=== PATIENT | male | born 1980 | race African-American/Black ===

== ENCOUNTER 2024-02-04 15:57 | Emergency (ER) | payer OTHER ==
[~2024-02-04] VITALS: Ht 185.4 cm; Wt 113.4 kg
[2024-02-04 16:04] VITALS: BP_SYST 160; PULSE 103; RESP 17; TEMP 97.6; O2SAT 97
[2024-02-04] MEDS ORDERED: BACITRACIN 1 GM OINT TP ONE (16:52)
[2024-02-04] MEDS: cefTRIAXone 1 GM VIAL IM ONE (17:03)
[2024-02-04] MEDS ORDERED: DOXY100C5 PO (17:08)
[2024-02-04] MEDS ORDERED: CEFU250T85 PO (17:08)
[2024-02-04 17:12] VITALS: BP_SYST 150; PULSE 68; RESP 20; TEMP 97.8; O2SAT 98
== END 2024-02-04 17:14 | disposition home or self-care (01) ==
LOC: SED 15:57
DX: Z48.00 Encounter for change or removal of nonsurgical wound dressing (principal)
CPT/HCPCS: 99283; 96372; J0696

== ENCOUNTER 2024-03-02 21:35 | Emergency (ER) | payer OTHER ==
[~2024-03-02] VITALS: Ht 185.4 cm; Wt 113.4 kg
[~2024-03-02 21:35] MED LIST: CEFU250T85 PO; DOXY100C5 PO
[2024-03-02 21:59] VITALS: BP_SYST 160; PULSE 79; RESP 18; TEMP 98.2; O2SAT 98
[2024-03-03] MEDS: CLINDAMYCIN 600 mg/50mL D5W 50 ML IV ONE (00:19)
[2024-03-03] MEDS ORDERED: CLIN-142 PO (02:21)
[2024-03-03 02:27] VITALS: BP_SYST 142; PULSE 76; RESP 16; TEMP 98; O2SAT 97
== END 2024-03-03 02:27 | disposition home or self-care (01) ==
LOC: SED 21:35
DX: L03.114 Cellulitis of left upper limb (principal); R22.32 Localized swelling, mass and lump, left upper limb; Z79.899 Other long term (current) drug therapy; Z79.2 Long term (current) use of antibiotics
CPT/HCPCS: 99285; 87040; 36415; 96365; 73200; J3490